=== PATIENT | male | born 2000 | race Caucasian/White ===

== ENCOUNTER 2019-11-12 14:04 | Emergency (ER) | payer SELFPAY ==
[~2019-11-12] VITALS: Ht 188 cm; Wt 90.9 kg
[2019-11-12 14:04] VITALS: TEMP 98.3
[2019-11-12] MEDS ORDERED: NAPROSYN500 MG PO (15:09)
[2019-11-12 15:59] VITALS: BP 123/81; PULSE 68
== END 2019-11-12 16:00 | disposition home or self-care (01) ==
LOC: COL.ER 14:04 → EDBD 14:04 → COL.ER 16:00
DX: S63.92XA Sprain of unspecified part of left wrist and hand, initial encounter (principal); S93.401A Sprain of unspecified ligament of right ankle, initial encounter; W17.2XXA Fall into hole, initial encounter; Y92.009 Unspecified place in unspecified non-institutional (private) residence as the place of occurrence of the external cause
CPT/HCPCS: J1885; J7030

== ENCOUNTER 2020-01-12 10:56 | Emergency (ER) | payer SELFPAY ==
[~2020-01-12] VITALS: Ht 188 cm; Wt 95.5 kg
[~2020-01-12 10:56] MED LIST: NAPROSYN500 MG PO
[2020-01-12 11:37] VITALS: BP 129/75; PULSE 63; TEMP 97.4
== END 2020-01-12 11:50 | disposition left against medical advice (07) ==
LOC: COL.ER 10:56
DX: M54.9 Dorsalgia, unspecified (principal)